=== PATIENT | female | born 1975 | race Caucasian/White ===

== ENCOUNTER → 2020-04-29 12:17 | Outpatient (CLI) | payer OTHER, SELFPAY ==
--- NOTE | ~2020-04-29 | MM_ITS ---
EXAMINATION: MM scrn juan implant BI w elaina HISTORY: Screening mammogram TECHNIQUE: Craniocaudal and mediolateral oblique 3-D tomosynthesis images with implant displacement a nd synthetic 2-D images were generated. Craniocaudal and mediolateral oblique views of the breasts wi thout implant displacement were obtained using full field digital mammography. CAD analysis was submi tted and interpreted. COMPARISON: 10/09/2018, 10/07/2017, 09/20/2016 bilateral digital mammogram examinations BREAST PARENCHYMAL COMPOSITION: There are scattered areas of fibroglandular density. FINDINGS: Status post bilateral augmentation mammoplasty. There is no evidence of suspicious mass, ca lcification, or architectural distortion to suggest malignancy in either breast. There has been no flood spicious interval change. IMPRESSION: 1. No mammographic evidence of malignancy. 2. Recommend routine screening mammography in one year. BI-RADS Category 1: Negative Reviewed, dictated and finalized at location A.
== END ==
PROVIDERS: PCP Internal Medicine; Visit Provider Obstetrics & Gynecology
DX: Z12.31 Encounter for screening mammogram for malignant neoplasm of breast (principal)
CPT/HCPCS: 77063; 77067

== ENCOUNTER 2020-08-05 08:46 | Outpatient (CLI) | payer OTHER, SELFPAY | END 2020-08-05 08:47 | disposition home or self-care (01) | PROVIDERS: PCP Internal Medicine; Visit Provider Obstetrics & Gynecology | DX: R10.2 Pelvic and perineal pain (principal); Z01.818 Encounter for other preprocedural examination | CPT/HCPCS: 36415; 86850; 86900; 86901 ==

== ENCOUNTER 2020-08-12 00:21 | Outpatient (CLI) | payer OTHER, SELFPAY ==
[2020-08-12 19:47] LABS: SARS-CoV-2 RNA PCR Negative
== END 2020-08-12 00:22 | disposition home or self-care (01) ==
LOC: ANHCOVIDDT 00:21
PROVIDERS: PCP Internal Medicine; Visit Provider Obstetrics & Gynecology
DX: Z01.818 Encounter for other preprocedural examination (principal); Z20.828 Contact with and (suspected) exposure to other viral communicable diseases
CPT/HCPCS: 87635; C9803; U0003

== ENCOUNTER 2020-08-15 00:10 | Day surgery (SDC) | payer OTHER, SELFPAY ==
[2020-07-31 15:14] VITALS: BMI 26.6
--- NOTE | 2020-08-13 09:53 | P.HP_ITS ---
H&P: HPI History of Present Illness Date/Time: 08/13/20 09:53 Chief complaint: Left Ovarian Cyst/ Pelvic Pain/ Irregular Bleeding Narrative: Jonah Martinez is a 45 year old female who is admitted for laparoscopy and left ovarian cystectomy possible left salpingo-oophorectomy. She has had some discomfort she has had an ultrasound which shows an fairly normal rugae uterus the left ovary contains what appears to be a dermoid cyst in right ovary has a little fluid surrounding it. In light of this dermoid cyst she is admitted for cystectomy and possible oophorectomy risks and benefits were reviewed including but not exclusive of , aspiration pneumonia, bleeding, transfusion, perforation injury to bowel, bladder, ureters, or other internal organs with need for open laparotomy. She voiced understanding. She received the [employer] handout entitled laparoscopy. She asked to proceed she had initially complained of some bleeding and we discussed hysteroscopy and D&C but she declined Review of Systems 2 Review of Systems: All systems reviewed & are unremarkable except as noted in HPI and below PMFSH Social History Social History Smoking status: Never smoker Alcohol intake: current Drinks per week: 5 Spiritual care concerns: No Meds Home Medications and Allergies Home Medications Medication Instructions Recorded Confirmed Type doxycycline hyclate 100 mg PO DAILY 07/31/20 07/31/20 History venlafaxine 75 mg PO DAILY 07/31/20 07/31/20 History Allergies Allergy/AdvReac Type Severity Reaction Status Date / Time minocycline Allergy Mild HIVES Unverified 07/31/20 15:14 Exam Const: General: no acute distress Eyes: General: appearance normal, both eyes and all related structures Neck: Neck: supple and no JVD Thyroid: thyroid normal Resp: Effort & Inspection: normal respiratory effort Auscultation: clear to auscultation bilaterally Cardio: Rate: regular rate Rhythm: regular rhythm GI: Inspection: non-distended GI Palp: Yes Soft to palpation, No Tenderness to palpation present (GI) and No Guarding due to palpation present (GI) Auscultation: normal bowel sounds : General: Yes bladder normal to inspection External Female Exam: normal external appearance Speculum Exam - Vagina: normal appearance of the vagina Speculum Exam - Cervix: normal appearance of the cervix Bimanual Exam- Adnexa, other: Adnexal mass present on the left Skin: General skin exam: no rashes or lesions noted Extrem: General: normal to inspection and no edema Psych: Mental Status: mental status grossly normal Affect: normal affect Assessment and Plan Additional Plan impression: Complex left ovarian cyst Plan: Laparoscopic left ovarian cystectomy, possible left salpingo-oophorectomy
[2020-08-15] VITALS (8 sets, daily range): BP systolic 112–128; BP diastolic 68–87; PULSE 59–79; RESP 10–14; TEMP 36.2–36.6; O2SAT 96–100
--- NOTE | 2020-08-15 06:33 | WPDHPUPDATE1 ---
History and Physical Update Update Date/Time: 08/15/20 06:33 History and Physical has been reviewed, including an updated exam of the patient. There are NO changes in the patient's condition. Risks, benefits, and alternatives have been discussed and questions answered. Patient agrees to proceed with procedure.
--- NOTE | 2020-08-15 09:55 | WPDANESEPPF ---
Anes - Initial Pre Proc Eval Procedure: Operation Date: 08/15/20 11:30 Proposed Procedures p Laparoscopic Left Ovarian Cystectomy, Possible Left Salpingo-Oophorectomy - Moose Bettencourt MD Date/Time: 08/15/20 09:55 Surgeon: Moose Bettencourt MD Pre Op Diagnosis: Left Ovarian Cyst/ Pelvic Pain/ Irregular Bleeding Patient Data Age: 45 Gender: F Height: 5 ft 7 in Weight: 79.45 kg Last Vital Signs Temp 36.4 C L 08/15/20 09:20 Pulse 78 08/15/20 09:20 Resp 14 08/15/20 09:20 BP 128/74 08/15/20 09:20 Pulse Ox 100 08/15/20 09:20 Allergies Allergy/AdvReac Type Severity Reaction Status Date / Time minocycline Allergy Mild HIVES Unverified 08/15/20 09:43 Home Medications Medication Instructions Recorded Confirmed Type venlafaxine 75 mg PO DAILY 07/31/20 08/15/20 History hydrocodone-acetaminophen [[place]] 1 tablet PO Q4H PRN #30 tablet 08/15/20 Rx Patient hx anesthesia problems: none Family hx anesthesia problems: post op nausea/vomiting PMFSH Past Medical History Medical History (Updated 08/15/20 @ 09:55 by Sarbjit Velazquez MD) Anxiety Social History Social History Smoking status: Never smoker Alcohol intake: current Drinks per week: 5 Spiritual care concerns: No Anes - Eval Final PreProcedure Day of Procedure 08/15/20 09:55 Patient weight: overweight Heart: regular rate and rhythm Lungs: clear to auscultation Airway: Mallampati scale class II Neurological: alert and oriented Last oral intake: >/= 8 hours ASA classification: II Emergent: no Anesthetic plan: proceed Anesthesia type and monitoring: general ETT and standard monitoring Informed Consent: The patient's anesthetic plan and its attendant risks and benefits were discussed with the patient/family/POA. Questions were solicited and answers provided to the satisfaction of the patient/family/POA.
[2020-08-15] MEDS: ACETAMINOPHEN 500 MG TABLET 1000 MG PO (10:06)
[2020-08-15] MEDS: KETOROLAC 15 MG/ML VIAL (*BKC) IV PUSH (10:27)
[2020-08-15] MEDS: LACTATED RINGERS 1,000 ML 30 ML IV CONT ×2 (10:28→14:12)
--- NOTE | 2020-08-15 10:38 | SUR.PREOP ---
pt informed when arrived that delay in procedure possibly 1 hour,pt okayed.
--- NOTE | 2020-08-15 12:26 | WPDHPUPDATE1 ---
History and Physical Update Update Date/Time: 08/15/20 12:26 History and Physical has been reviewed, including an updated exam of the patient. There are NO changes in the patient's condition. Risks, benefits, and alternatives have been discussed and questions answered. Patient agrees to proceed with procedure. the patient has now agreed to hysteroscopy and dilatation and curettage. Risks and benefits of that were reviewed again today and in the previous workup in the office
--- NOTE | 2020-08-15 13:58 | P.OP_ITS ---
Procedure Note - Detailed Date of procedure: 08/15/20 Pre-op diagnosis: Left Ovarian Cyst/ Pelvic Pain/ Irregular Bleeding Surgeon: Moose Bettencourt MD Postop diagnosis left ovarian cyst / pelvic pain / pelvic adhesions /heavy bleeding Procedure: Laparoscopic left salpingo-oophorectomy / lysis of adhesions / h ysteroscopy/dilatation curettage Anesthesia: General endotracheal Complications: None EBL: 25cc Findings: Complex left ovarian cyst. Multiple pelvic adhesions over the left tubo-ovarian complex. Retroverted uterus. Normal-appearing uterus right ovary and tube Description of procedure: The patient was prepped draped in the normal sterile fashion placed in the dorsal lithotomy position. Under excellent general trach anesthesia weighted speculum placed in posterior fornix of vagina. Anterior lip of the cervix was grasped with a single-tooth tenaculum. The Nagel's cannula was inserted and attached to the single-tooth to be used later for uterine manipulation. The bladder was emptied of clear urine. The weighted speculum was removed. Gloves were changed. An infraumbilical incision was made. The Veress needle passed in the abdomen. Abdomen was filled with CO2 gas [id number]. The 5mm trocar was advanced the abdomen under direct visualization assuring no injury. The patient was placed in Trendelenburg and a suprapubic incision made. A 5mm trocar advanced under direct visualization assuring no injury. A left lower quadrant incision made in the 12mm trocar advanced under direct visualization assuring no injury. Multiple adhesions were seen from the colon to to the ovarian tube tubal complex. Using sharp dissection these were the infundibulopelvic structure on the left was then skeletonized. It was clamped, burned, cut. This was placed in Endo-Catch removed through the left lower quadrant. The right ovary and tube appeared within normal limits irrigation was undertaken. The gas removed from the abdomen. The lower site removed. The incisions closed with 4 Monocryl glue. Attention was turned to the hysteroscopy. The uterus sounded to 8cm and noted be retroverted. Serial dilatation with fragmented dilators performed followed by passage of a 5mm visualizing hysteroscope using normal saline as visualizing medium. Clots and blood was seen in the uterus but no definitive abnormalities. Uterus was scraped over the entire 360? until a good grating sound was heard. When no further tissue removed instruments removed were all accounted for. Patient was awakened. All sponge, needle, instrument counts were correct. There were no immediate complications
== END 2020-08-15 16:12 | disposition home or self-care (01) ==
PROVIDERS: PCP Internal Medicine; Visit Provider Obstetrics & Gynecology
PROC: (CPT 49320; principal; 2020-08-15 11:30)
PROC: 0U5B8ZZ Destruction of Endometrium, Via Natural or Artificial Opening Endoscopic (ICD-10-PCS; CPT 58563; 2020-08-15 11:30)
DX: N83.12 Corpus luteum cyst of left ovary (principal); N83.292 Other ovarian cyst, left side; R10.2 Pelvic and perineal pain; N93.9 Abnormal uterine and vaginal bleeding, unspecified; N73.6 Female pelvic peritoneal adhesions (postinfective); F41.9 Anxiety disorder, unspecified
CPT/HCPCS: 58661; 58558; 88305; A9270; J1100; J1170; J1885; J2250; J2405; J2704; J2710; J3010; J7030; J7120; Q9968

== ENCOUNTER → 2021-05-21 16:01 | Outpatient (CLI) | payer OTHER, SELFPAY ==
--- NOTE | ~2021-05-21 | MM_ITS ---
EXAMINATION: MM scrn juan implant BI w elaina HISTORY: Screening mammogram TECHNIQUE: Craniocaudal and mediolateral oblique 3-D tomosynthesis images with implant displacement a nd synthetic 2-D images were generated. Craniocaudal and mediolateral oblique views of the breasts wi thout implant displacement were obtained using full field digital mammography. CAD analysis was submi tted and interpreted. COMPARISON: 04/29/2020, 10/09/2018, 10/07/2017, 09/20/2016 BREAST PARENCHYMAL COMPOSITION: There are scattered areas of fibroglandular density. FINDINGS: There is no evidence of suspicious mass, calcification, or architectural distortion to sugg est malignancy in either breast. There has been no suspicious interval change. IMPRESSION: 1. No mammographic evidence of malignancy. 2. Recommend routine screening mammography in one year. BI-RADS Category 1: Negative Reviewed, dictated and finalized at location A.
== END ==
PROVIDERS: Visit Provider Obstetrics & Gynecology
DX: Z12.31 Encounter for screening mammogram for malignant neoplasm of breast (principal)
CPT/HCPCS: 77063; 77067

== ENCOUNTER → 2022-12-10 11:30 | Outpatient (CLI) | payer OTHER, SELFPAY ==
--- NOTE | ~2022-12-10 | MM_ITS ---
EXAMINATION: MM scrn juan implant BI w elaina HISTORY: Screening mammogram, family history of breast cancer in her mother. TECHNIQUE: Craniocaudal and mediolateral oblique 3-D tomosynthesis images with implant displacement a nd synthetic 2-D images were generated. Craniocaudal and mediolateral oblique views of the breasts wi thout implant displacement were obtained using full field digital mammography. CAD analysis was submi tted and interpreted. COMPARISON: 05/21/2021, 04/21/2020, 10/09/2018 BREAST PARENCHYMAL COMPOSITION: There are scattered areas of fibroglandular density. FINDINGS: There is no evidence of suspicious mass, calcification, or architectural distortion to sugg est malignancy in either breast. There has been no suspicious interval change. IMPRESSION: 1. No mammographic evidence of malignancy. 2. Recommend routine screening mammography in one year. BI-RADS Category 1: Negative Reviewed, dictated and finalized at location A. 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
== END ==
PROVIDERS: PCP Internal Medicine; Visit Provider Obstetrics & Gynecology
DX: Z12.31 Encounter for screening mammogram for malignant neoplasm of breast (principal)
CPT/HCPCS: 77063; 77067

== ENCOUNTER → 2023-10-14 15:48 | Outpatient (CLI) | payer OTHER, SELFPAY ==
--- NOTE | ~2023-10-14 | US_ITS ---
EXAMINATION: US pelvic complete w TV DATE: 10/14/2023 16:12 INDICATION: hypertrophy of uterus TECHNIQUE: Multiple transabdominal and endovaginal sonographic images of the pelvis were obtained. COMPARISON: None. FINDINGS: Uterus: 4.3 x 2.4 x 3.9 cm. Retroverted Endometrial complex measures 3 mm. Right Ovary: 1.7 x 1.3 x 0.9 cm. Vascular flow is present. No adnexal mass Left Ovary: 2.2 x 1.0 x 1.8 cm. Vascular flow is present. No adnexal mass There is no free fluid in the pelvis. IMPRESSION: Normal pelvic sonogram findings. Reviewed, dictated and finalized at location K. E BUYER
== END ==
PROVIDERS: PCP Obstetrics & Gynecology; Visit Provider Obstetrics & Gynecology
DX: N85.2 Hypertrophy of uterus (principal)
CPT/HCPCS: 76830; 76856

== ENCOUNTER 2023-12-20 15:07 | Outpatient (CLI) | payer OTHER, SELFPAY ==
--- NOTE | ~2023-12-20 | MM_ITS ---
EXAMINATION: MM scrn juan implant BI w elaina HISTORY: Screening mammogram TECHNIQUE: Craniocaudal and mediolateral oblique 3-D tomosynthesis images with implant displacement a nd synthetic 2-D images were generated. Craniocaudal and mediolateral oblique views of the breasts wi thout implant displacement were obtained using full field digital mammography. CAD analysis was submi tted and interpreted. COMPARISON: Comparison to multiple prior studies sequentially, with oldest reviewed study dated 09/02. BREAST PARENCHYMAL COMPOSITION: Not dense: There are scattered areas of fibroglandular density. FINDINGS: There is a mass in the upper outer quadrant of the right breast, middle third. . The left b reast is stable without evidence for malignancy. IMPRESSION: 1. Right breast mass upper outer quadrant. 2. Additional mammographic views and possible breast ultrasound are recommended. BI-RADS Category 0: Incomplete: Needs additional imaging evaluation. Reviewed, dictated and finalized at location A. IMPRESSION: 1. Right breast mass upper outer quadrant. 2. Additional mammographic views and possible breast ultrasound are recommended . BI-RADS Category 0: Incomplete: Needs additional imaging evaluation.
== END 2023-12-20 15:08 ==
LOC: MICIMG 15:08
PROVIDERS: PCP Obstetrics & Gynecology; Visit Provider Obstetrics & Gynecology
DX: Z12.31 Encounter for screening mammogram for malignant neoplasm of breast (principal); R92.8 Other abnormal and inconclusive findings on diagnostic imaging of breast
CPT/HCPCS: 77063; 77067

== ENCOUNTER 2023-12-27 09:06 | Outpatient (CLI) | payer OTHER, SELFPAY ==
--- NOTE | ~2023-12-27 | MMUS_ITS ---
EXAMINATION: MM diag juan implant RT w elaina, US breast RT limited HISTORY: Upper outer quadrant right breast mass reported on 12/20/2023 screening mammogram. TECHNIQUE: Additional 3-D tomosynthesis images of the right breast were performed and synthetic 2-D i mages were generated. CAD analysis was submitted and interpreted. High resolution upper outer and low er-outer quadrant right breast ultrasound was performed. COMPARISON: 12/20/2023 bilateral implant screening mammogram FINDINGS: MAMMOGRAPHIC FINDINGS: No suspicious mass or architectural distortion is detected. ULTRASOUND: No suspicious mass or shadowing or other significant sonographic abnormality is detected in the upper outer or lower outer quadrants of the right breast. Right breast implant is noted. IMPRESSION: 1. No evidence of malignancy 2. Routine annual mammographic screening is recommended. BI-RADS Category 1: Negative Reviewed, dictated and finalized at location A. IMPRESSION: 1. No evidence of malignancy 2. Routine annual mammographic screening is recommended. BI-RADS Category 1: Negative
== END 2023-12-27 09:07 | disposition home or self-care (01) ==
LOC: CHSIMG 09:09
PROVIDERS: PCP Internal Medicine; Visit Provider Obstetrics & Gynecology
DX: R92.8 Other abnormal and inconclusive findings on diagnostic imaging of breast (principal)
CPT/HCPCS: 76642; 77061; 77065; G0279

== ENCOUNTER 2024-09-21 11:00 | Outpatient (CLI) | payer OTHER, SELFPAY ==
--- NOTE | ~2024-09-21 | XR_ITS ---
Lumbosacral Spine: AP and lateral views Clinical History: Pain Findings: The normal lordotic curve is maintained. The vertebral bodies and posterior elements are i ntact. The intervertebral disc spaces are preserved. There is moderate facet arthropathy at the lowe r lumbar spine, especially from L4 through S1. The sacroiliac joints are normally outlined. Impression: Facet joint degenerative change, as above. Reviewed, dictated and finalized at location M. P STAMP STRAIGHTENER Impression: Facet joint degenerative change, as above.
== END 2024-09-21 11:01 | disposition home or self-care (01) ==
LOC: MICIMG 11:01
PROVIDERS: PCP Internal Medicine; Visit Provider Internal Medicine
DX: M54.50 Low back pain, unspecified (principal)
CPT/HCPCS: 72100

== ENCOUNTER 2024-11-28 07:03 | Outpatient (CLI) | payer OTHER, SELFPAY ==
--- NOTE | ~2024-11-28 | MR_ITS ---
MRI of the lumbar spine Clinical History: Back pain Technique: Axial T2-weighted images, and sagittal T1-weighted, T2-weighted, and T2 fat-sat images wer e acquired. Findings: There is no fracture or subluxation of the lumbar spine. Vertebral bodies maintain normal h eight and alignment. No bone marrow signal abnormality seen. At L1-L2, there is minimal degenerative disc narrowing. No disc bulge or herniation. There is mild fa cet hypertrophy. No spinal canal stenosis or neural foraminal narrowing. At L2-L3, there is no disc bulge or herniation. There is moderate facet hypertrophy. No central canal stenosis or neural foraminal narrowing. L3-L4, there is minimal disc bulge with moderate facet arthropathy. No central canal stenosis or neur al foraminal narrowing. At L4-L5, there is minimal disc bulge with tiny annular fissure. There is mild facet arthropathy. No central canal stenosis or neural foraminal narrowing. At L5-S1, there is minimal disc bulge with mild facet arthropathy. No central canal stenosis or neura l foraminal narrowing. Paravertebral soft tissues are unremarkable. Impression: Mild degenerative change, as above. Reviewed, dictated and finalized at location . NFORMATICS ASSOCIATE Impression: Mild degenerative change, as above.
== END 2024-11-28 07:04 | disposition home or self-care (01) ==
LOC: MICIMG 07:04
PROVIDERS: PCP Internal Medicine; Visit Provider Internal Medicine
DX: M51.369 Other intervertebral disc degeneration, lumbar region without mention of lumbar back pain or lower extremity pain (principal)
CPT/HCPCS: 72148